=== PATIENT | male | born 1980 | race African-American/Black ===

== ENCOUNTER 2020-06-01 19:07 | Inpatient (IN) | payer SELFPAY ==
--- NOTE | 2020-06-01 19:50 | RAD ---
Chest one view HISTORY: Chest injury. FINDINGS: Cardiac silhouette and pulmonary vasculature are unremarkable. Mediastinum is midline. No airspace consolidation or evidence of pneumothorax. IMPRESSION : No abnormalities are demonstrated.
--- NOTE | 2020-06-01 19:52 | RAD ---
Right lower leg 2 views HISTORY: Fall. Injury. FINDINGS: Extensively comminuted predominantly oblique fracture of the distal fibular shaft is presen t with minimal distraction of the fragments and no significant angulation or displacement. The largest butterfly fragment is 6.3 cm length, positioned immediately posterior to the major fracture p marah. Far medial aspect of the medial tibial plateau is excluded from the frontal view. A small irregular w ell-corticated ossification adjacent to the tip of the medial malleolus is better demonstrated on dedicated ankle exam. IMPRESSION : Comminuted distal right fibular fracture.
--- NOTE | 2020-06-01 19:57 | RAD ---
Right ankle 3 views HISTORY: Fall. Injury. FINDINGS: There is slight widening of the medial aspect of the ankle mortise to 0.5 cm. Talar dome is intact. Comminuted fracture of the distal fibular shaft is visualized and better detailed on dedicated lower leg exam. 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 An irregular shaped 1.1 cm density over the medial aspect of the ankle projects outside of the soft t issues and favored to represent an overlying artifact. Degenerative changes of the posterior subtalar facet. IMPRESSION : Probable disruption of the medial ankle ligamentous structures with slight lateral shift of the talus associated with the distal fibular injury.
[2020-06-01] MEDS ORDERED: Morphine 4 MG/ML VIAL ONE (20:15)
[2020-06-01] MEDS ORDERED: Boostrix 0.5 ML (Tdap) VIAL ONE (20:15)
[2020-06-01] MEDS ORDERED: CEFAZOLIN 1 GM VIAL ONE (20:25)
--- NOTE | 2020-06-01 21:34 | HP ---
REQUESTING PHYSICIAN: Dr. Arroyo. ATTENDING SURGEON: Dr. Chung. CONSULTATIONS: Orthopedics, Dr. Kaplan. HISTORY OF PRESENT ILLNESS: The patient is a 39-year-old man, who was walking up a driveway when he slipped and fell twisting his right ankle. The patient felt immediate pain, was unable to ambulate. He was brought to the emergency department by ground EMS, where he underwent evaluation and examination and was noted to have a right distal fibular fracture, at which time we were asked to evaluate the patient for admission and obtain Orthopedic consultation. The patient denied loss of consciousness or any syncopal events prior to his fall. He denies blood thinner use. ALLERGIES: NONE. CURRENT MEDICATIONS: None. PAST MEDICAL HISTORY: None. PAST SURGICAL HISTORY: Tendon repair on right small finger. SOCIAL HISTORY: The patient drinks 1 to 2 times a week. Smokes marijuana daily. Lives at home with family. REVIEW OF SYSTEMS: 10-point review of systems is negative except as otherwise stated. PHYSICAL EXAMINATION: VITAL SIGNS: Blood pressure 131/83, heart rate 70, respirations 18, oxygen saturation 98% on room air, temperature is 99.5. GENERAL: The patient is resting comfortably in bed. He is awake, alert, conversant, appropriate. Tab Coma Scale is 15. HEENT: Head is normocephalic and atraumatic. Eyes, extraocular motions intact. PERRLA bilaterally. Ears are atraumatic without discharge. Nose is atraumatic without discharge. Oropharynx is clear. NECK: Nontender. Trachea is midline with no JVD. CHEST: Clear to auscultation with good inspiratory and expiratory effort. HEART: Regular rate and rhythm. ABDOMEN: Soft, flat, nontender with active bowel sounds. EXTREMITIES: Neurovascularly intact x4. Right lower extremity is elevated. There is swelling primarily to the lateral side. He does have a 2 cm laceration over the medial malleolus. BACK: Atraumatic and nontender. LABORATORY DATA: There are no labs to review. RADIOGRAPHS: AP chest shows no acute abnormalities. Views of the right tibia and fibula show a comminuted distal right fibular fracture. Views of the right ankle show probable disruption of the medial ankle ligamentous structures with slight lateral shift of the talus associated with the distal fibular injury. ASSESSMENT/PLAN: 1. Status post ground level fall. 2. 2 cm medial laceration to right ankle. 3. Right distal fibular fracture with questionable widened mortise. 4. Acute pain secondary to above. PLAN: Will be to admit the patient under observation. We will make him n.p.o. after midnight. We will do pain control, pulmonary toilet, gastritis, and mechanical VTE prophylaxis. The patient was given tetanus and 2 g of Ancef in the emergency department. The patient will be planned for surgery in the morning. We will have crutch training postoperatively and the patient should be able to be discharged home tomorrow. Dr. Kaplan has been contacted about the patient and confirms this is his plan. The evaluation, examination, laboratory, and radiographic findings will be discussed with the attending after this dictation. Job ID: [id number]
[2020-06-01] MEDS ORDERED: Fentanyl 100 MCG/2 ML VIAL ONE (22:12)
[2020-06-01 22:47] LABS: SARS-CoV-2 NAA Rapid Test Not Detected (NotDetected)
[2020-06-02] MEDS ORDERED: Acetaminophen 325 MG TAB PO PRN (01:30)
[2020-06-02] MEDS ORDERED: Acetaminophen 325 MG TAB ONE (02:58)
[2020-06-02] MEDS ORDERED: Morphine 2 MG/ML VIAL ONE (05:32)
[2020-06-02] MEDS ORDERED: Dextrose 5% in Water 1,000 ML IV PRN (05:43)
[2020-06-02] MEDS ORDERED: Cyclobenzaprine 10 MG TAB PO PRN (05:43)
[2020-06-02] MEDS ORDERED: Morphine 2 MG/ML VIAL SLOW IVP PRN (05:43)
[2020-06-02] MEDS ORDERED: Ondansetron ODT 4 MG TAB PO PRN (05:43)
[2020-06-02] MEDS ORDERED: traMADol HCl 50 MG TAB PO PRN (05:43)
[2020-06-02] MEDS ORDERED: Sodium Chloride 0.9% 1,000 ML IV SCH (05:43)
[2020-06-02] MEDS ORDERED: hydrALAZINE 20 MG/ML VIAL SLOW IVP PRN (05:43)
[2020-06-02] MEDS ORDERED: Dextrose 50% Abboject 50 ML SYRINGE SLOW IVP PRN (05:43)
[2020-06-02 05:45] VITALS: BMI 38.5
[2020-06-02] MEDS ORDERED: Acetaminophen 500 MG TAB PO SCH (06:00)
[2020-06-02] MEDS ORDERED: traMADol HCl 50 MG TAB PO SCH (06:00)
[2020-06-02] MEDS ORDERED: Fentanyl 100 MCG/2 ML VIAL ONE ×4 (06:49→10:00)
[2020-06-02] MEDS ORDERED: Ibuprofen 800 MG TAB PO SCH (07:00)
[2020-06-02] MEDS ORDERED: Midazolam HCl 2 mg/2 ml Vial ONE ×2 (07:14→10:00)
[2020-06-02] MEDS ORDERED: Famotidine 20 MG TAB PO SCH (09:00)
--- NOTE | 2020-06-02 09:15 | RAD ---
EXAM: 3 views of the right ankle HISTORY: Ankle fracture COMPARISON: 06/01/2020 FINDINGS/IMPRESSION: 3 limited intraoperative fluoroscopic views of the right ankle shows the patient to be status post plate and screw fixation of the distal fibular fracture. A syndesmotic screw is seen. There is better alignment of the ankle mortise with no significant widening of the medial clear space on the postoperative films.
[2020-06-02] MEDS ORDERED: Meperidine HCl/PF 25 MG/ML VIAL ONE (09:34)
[2020-06-02] MEDS ORDERED: HYDROmorphone 2 MG/ML VIAL SLOW IVP PRN (09:53)
[2020-06-02] MEDS ORDERED: Promethazine HCl 25 MG/ML VIAL SLOW IVP PRN (09:53)
[2020-06-02] MEDS ORDERED: Meperidine HCl/PF 25 MG/ML VIAL SLOW IVP PRN (09:53)
[2020-06-02] MEDS ORDERED: Ondansetron HCl/PF 4 MG/2 ML Vial IVP PRN (09:53)
[2020-06-02] MEDS ORDERED: Midazolam HCl 2 mg/2 ml Vial SLOW IVP ONE (10:15)
[2020-06-02] MEDS ORDERED: Ketorolac Tromethamine 30 MG/ML VIAL ONE (12:00)
[2020-06-02] MEDS ORDERED: Dexamethasone 20 MG/5 ML VIAL ONE (12:00)
[2020-06-02] MEDS ORDERED: Lidocaine 1% PF 5 ML VIAL ONE (12:00)
[2020-06-02] MEDS ORDERED: PROPOFOL 200 MG/20 ML VIAL ONE (12:00)
[2020-06-02] MEDS ORDERED: Ondansetron PF 4 MG/2 ML Vial ONE (12:00)
[2020-06-02] MEDS ORDERED: HYDROcodone/Acetaminophen 5/325 mg Tablet ONE (14:20)
--- NOTE | 2020-06-02 15:20 | DIS ---
DATE OF ADMISSION: 06/01/2020 DATE OF DISCHARGE: 06/02/2020 ADMISSION DIAGNOSES: 1. Status post ground level fall. 2. Laceration to medial right ankle. 3. Right distal fibular fracture with questionable widened mortise. 4. Acute pain secondary to above. CONSULTATION: Orthopedics, Dr. Kaplan. PROCEDURE: Open reduction and internal fixation of right distal fibula fracture with syndesmotic screw. SUMMARY: The patient is a 39-year-old man, who was brought to the emergency department after slipping on the ice and rolling his ankle. He underwent evaluation and examination and was noted to have the above injuries. At which time, he was admitted to the hospital and the following morning, he underwent his above procedure, which he tolerated well. Postoperatively, he worked with Physical Therapy on crutch training and was able to be discharged home that day. He will follow up with Dr. Kaplan in 1 to 2 weeks, sooner as needed. The patient was discharged home with Keflex for 5 days, and Ultram 50 mg one to two tablets orally every 6 hours, #60. Job ID: [id number]
--- NOTE | 2020-06-02 15:35 | OP ---
DATE OF PROCEDURE: 06/02/2020 PREOPERATIVE DIAGNOSIS: Bimalleolar ankle fracture with syndesmotic disruption, right ankle. POSTOPERATIVE DIAGNOSIS: Bimalleolar ankle fracture with syndesmotic disruption, right ankle. PROCEDURES PERFORMED: 1. Open reduction and internal fixation of right distal fibula. 2. Reduction and screw stabilization of syndesmosis. ANESTHESIA: General. TRAFFIC ATTENDANT: FRANCI Chang. TOURNIQUET TIME: Approximately 1 hour at 300 mmHg. IMPLANTS: Synthes 10-hole 1/3 tubular plate. COMPLICATIONS: None. DRAINS: None. SPECIMEN: None. OUTCOME: Satisfactory. INDICATIONS FOR PROCEDURE: The patient is a 39-year-old gentleman, status post slip and fall on ice, sustaining a distal fibular fracture as well as a small avulsion fracture at the medial side of the ankle with some widening medially consistent with possible syndesmotic disruption. After discussion with the patient including risks and benefits, we decided to proceed with open reduction and internal fixation. Informed consent has been obtained. I believe all questions have been answered. DESCRIPTION OF PROCEDURE: The patient was brought to the operating room and a time-out performed followed by induction of general anesthesia. Next, a sterile prep and drape was performed of the right lower extremity. Next, the limb was exsanguinated with Esmarch bandage, tourniquet inflated to 300 mmHg. A skin incision was made along the distal third of the fibula. After skin was sharply incised, dissection was carried down bluntly exposing the fracture. Next, while my assistant manager pt provided retraction of soft tissue, the fracture was reduced and held in place with K-wires and bone tenaculums. Once acceptably reduced, a 10-hole 1/3 tubular plate was applied to the lateral cortex of the distal fibular shaft. This was held in place with cortical screws both proximally and distally. During the course of the plate application, there was some mild loss of reduction of a small butterfly fragment; however, this was felt to be acceptable given the overall alignment of the fibula. Once the plate was affixed to the fibula and the fibula stabilized, the syndesmosis was reduced under C-arm guidance while the ankle was in a mortise alignment. Once reduced, it was held manually and then a drill passed from the plate of the fibula across both cortices of the fibula and across both cortices of the distal tibia. This was then followed by insertion of a single 4.0 mm cortical screw closing and stabilizing the mortise. At the completion of this, final AP, lateral, and mortise x-rays were obtained that showed near-anatomic alignment of the ankle and fibular shaft. During the course of this procedure, my assistant manager pt was providing reduction of the mortise while I inserted the hardware. Next, the wound was thoroughly irrigated with bulb syringe and closed in layers with 0 Vicryl deep followed by 2-0 Vicryl and vahe for the skin. The small open medial wound was irrigated thoroughly with bulb syringe and then closed with suture. Xeroform gauze and fiberglass splint were then applied to the ankle. The patient was then transferred to recovery room in stable condition. There were no complications. The patient tolerated the procedure well. Job ID: [id number]
--- NOTE | 2020-06-02 15:57 | HP ---
REQUESTING PHYSICIAN: Chato Pretty DO BRIEF HISTORY OF PRESENT ILLNESS: Ehsan is a 39-year-old gentleman who is status post slip and fall on driveway sustaining a twisting injury to his right ankle. Upon evaluation in the emergency room, he was found to have a small transverse laceration overlying the medial malleolus as well as a Goodwin C fracture of the distal fibular shaft. There was found to be some widening of the mortise and perhaps a small avulsion type fracture at the medial malleolus. Given these findings, the patient now asked to be consulted by Orthopedic Service with admission to the Trauma Service. PAST MEDICAL HISTORY: Healthy. PAST SURGICAL HISTORY: Small finger surgery with no complications. MEDICATIONS: None. ALLERGIES: NONE. FAMILY HISTORY: Noncontributory for this fall. SOCIAL HISTORY: He drinks alcohol one to two times a week. Denies smoking history except occasional pot. REVIEW OF SYSTEMS: No recent fevers, chills, or sweats. Denies chest pain, cough, or shortness of breath. Denies numbness, tingling, or weakness in his extremities prior to this fall. PHYSICAL EXAMINATION: VITAL SIGNS: Temperature 99.5, heart rate of 70, respiratory rate of 18, and blood pressure 131/83. HEENT: Atraumatic and normocephalic. HEART: Regular rate and rhythm without murmur. LUNGS: Clear to auscultation bilaterally with good breath sounds. EXTREMITIES: Remarkable for a right lower extremity that is in a fiberglass splint. He is able to wiggle his toes. He has intact subjective sensation within his toes. I have seen a photograph of the medial malleolar laceration. This measuring approximately 1.5 to 2 cm in length over the medial malleolus. X-RAYS: Two view right tib-fib shows a distal fibular fracture. Three-view right ankle shows a comminuted distal fibular fracture with widening of the medial joint space. ASSESSMENT: A 39-year-old gentleman status post slip and fall on ice, sustaining open ankle injury with distal fibular shaft fracture and probable loss of integrity of deltoid ligament. PLAN: At this time, the patient will be taken to the operating room for initial exam under anesthesia to confirm the syndesmotic disruption and anticipated stabilization of the syndesmosis and possible open reduction internal fixation of the fibula. Informed consent has been obtained. I believe all questions have been answered. Job ID: [id number]
[2020-06-02] MEDS ORDERED: CEFAZOLIN 2 GM in Premix Bag 1 BAG IVPB SCH (16:00)
== END 2020-06-02 14:35 | disposition home or self-care (01) | DRG 494 ==
LOC: ERS 19:07 → ERHOLD 20:57 → PACU-TCU 06-02 12:08
PROVIDERS: ADMIT Surgery; ATTEND Surgery
PROC: 0QSJ04Z Reposition Right Fibula with Internal Fixation Device, Open Approach (ICD-10-PCS; principal; 2020-06-02)
DX: S82.841B Displaced bimalleolar fracture of right lower leg, initial encounter for open fracture type I or II (principal); Z20.822 Contact with and (suspected) exposure to COVID-19; S91.011A Laceration without foreign body, right ankle, initial encounter; W01.0XXA Fall on same level from slipping, tripping and stumbling without subsequent striking against object, initial encounter; F17.210 Nicotine dependence, cigarettes, uncomplicated; F12.10 Cannabis abuse, uncomplicated; Z23 Encounter for immunization
CPT/HCPCS: 29505; 71045; 76000; 90471; 90715; 96365; 96375; 96376; C1713; G0390; J0690; J1100; J1885; J2175; J2250; J2270; J2405; J2704; J3010; U0002

== ENCOUNTER 2020-09-28 08:59 | Outpatient (CLI) | payer OTHER, SELFPAY ==
[2020-09-29 06:30] LABS: SARS-CoV-2 PCR by NAA Not Detected (NotDetected)
== END 2020-09-28 09:00 | disposition home or self-care (01) ==
LOC: LABBT 08:59
PROVIDERS: ATTEND Orthopaedic Surgery
DX: Z01.818 Encounter for other preprocedural examination (principal); Z20.822 Contact with and (suspected) exposure to COVID-19; T85.848A Pain due to other internal prosthetic devices, implants and grafts, initial encounter
CPT/HCPCS: 93005; 93010; U0003; U0005

== ENCOUNTER 2020-10-03 09:08 | Day surgery (SDC) | payer SELFPAY ==
[2020-09-29 13:44] VITALS: BMI 39.0
[2020-10-03] MEDS ORDERED: Bupivacaine PF 0.5% 30 ML VIAL ONE (12:01)
[2020-10-03] MEDS ORDERED: Fentanyl 100 MCG/2 ML VIAL ONE (12:24)
[2020-10-03] MEDS ORDERED: Midazolam HCl 2 mg/2 ml Vial ONE ×2 (12:24→12:42)
[2020-10-03] MEDS ORDERED: Propofol 500 MG/50 ML VIAL ONE (13:05)
== END 2020-10-03 14:15 | disposition home or self-care (01) ==
LOC: SDC 09:08
PROVIDERS: ATTEND Orthopaedic Surgery
PROC: 0SPG04Z Removal of Internal Fixation Device from Left Ankle Joint, Open Approach (ICD-10-PCS; principal; 2020-10-03)
DX: S82.842D Displaced bimalleolar fracture of left lower leg, subsequent encounter for closed fracture with routine healing (principal); X58.XXXD Exposure to other specified factors, subsequent encounter
CPT/HCPCS: 76000; J0690; J2250; J2704; J3010; S0020

== ENCOUNTER 2021-08-15 08:14 | Outpatient (CLI) | payer OTHER | END 2021-08-15 08:15 | disposition home or self-care (01) | LOC: TBSIIMAG 08:14 | PROVIDERS: ATTEND Family Medicine Sports Medicine | DX: S73.191A Other sprain of right hip, initial encounter (principal); G89.11 Acute pain due to trauma; V89.2XXA Person injured in unspecified motor-vehicle accident, traffic, initial encounter; M25.551 Pain in right hip; S43.431A Superior glenoid labrum lesion of right shoulder, initial encounter; M25.511 Pain in right shoulder ==